=== PATIENT | female | born 1965 | race Caucasian/White ===

== ENCOUNTER 2018-11-11 10:47 | Emergency (ER) | payer BC, OTHER ==
[2018-11-11 13:34] VITALS: BP 134/91
--- NOTE | 2018-11-11 13:42 | UC ---
Respiratory Complaint HPI - HPI Summary HPI Summary: Pt presents with c/o URI like symptoms that pt is concerned is "turning into bronchitis". Pt states that she has had symptoms X 4 days and thinks they are getting better today. Pt has been taking OTC dayquil and nyquil but does report symptoms improve with OTC medications but does not "get rid of the cough ". - History of Current Complaint Chief Complaint: UCRespiratory Stated Complaint: FEVER, COUGH, CONGESTION Time Seen by Provider: 11/11/18 13:27 Hx Obtained From: Patient ?: No Onset/Duration: Sudden Onset, Lasting Days, Still Present Severity Initially: Mild Severity Currently: Mild Pain Intensity: 3 Character: Cough: Nonproductive Aggravating Factors: Exertion, Deep Breaths, Recumbent Position Alleviating Factors: OTC Meds Associated Signs And Symptoms: Positive: URI, Nasal Congestion - Risk Factors Pulmonary Embolism Risk Factors: Smoking Cardiac Risk Factors: Smoking Tuberculosis Risk Factors: Smoking - Allergies/Home Medications Allergies/Adverse Reactions: Allergies Allergy/AdvReac Type Severity Reaction Status Date / Time Penicillins Allergy Hives Verified 11/11/18 13:31 Home Medications: Home Medications Dm/PE/Acetaminophen/Doxylamine [Vicks Nyquil Severe Cold-Flu] 1 liq PO SEE INSTRUCTIONS PRN 11/11/18 [History Confirmed 11/11/18] Omeprazole CAP* [Prilosec CAP* 20 MG] 20 mg PO DAILY 11/11/18 [History Confirmed 11/11/18] PMH/Surg Hx/FS Hx/Imm Hx Previously Healthy: Yes - Surgical History Surgical History: Yes Surgery Procedure, Year, and Place: , Tonsillectomy - Family History Known Family History: Positive: Cardiac Disease - Social History Lives: With Family Alcohol Use: Occasionally Substance Use Type: None Smoking Status (MU): Light Every Day Tobacco Smoker Amount Used/How Often: 1/7 PPD Length of Time of Smoking/Using Tobacco: Since 20s Have You Smoked in the Last Year: Yes Review of Systems All Other Systems Reviewed And Are Negative: Yes Constitutional: Positive: Negative Skin: Positive: Negative Eyes: Positive: Negative ENT: Positive: Negative Respiratory: Positive: Cough Cardiovascular: Positive: Negative Gastrointestinal: Positive: Negative Genitourinary: Positive: Negative Motor: Positive: Negative Neurovascular: Positive: Negative Musculoskeletal: Positive: Negative Neurological: Positive: Negative Psychological: Positive: Negative Is Patient Immunocompromised?: No Physical Exam Triage Information Reviewed: Yes Appearance: Well-Appearing Vital Signs: Initial Vital Signs Temp 98.2 F 11/11/18 13:29 Pulse 90 11/11/18 13:29 Resp 16 11/11/18 13:29 BP 134/91 11/11/18 13:29 Pulse Ox 100 11/11/18 13:29 Vital Signs Reviewed: Yes Eye Exam: Normal ENT Exam: Normal Dental Exam: Normal Neck exam: Normal Respiratory Exam: Normal Cardiovascular Exam: Normal Musculoskeletal Exam: Normal Neurological Exam: Normal Psychological Exam: Normal Skin Exam: Normal UC Diagnostic Evaluation - Laboratory O2 Sat by Pulse Oximetry: 100 Respiratory Course/Dx - Course Course Of Treatment: I discussed with the pt that I believed she had a viral infection. Pt stated that she has bronchitis developing and would like a z-pac. - Differential Dx/Diagnosis Differential Diagnosis/HQI/PQRI: Bronchitis Provider Diagnosis: Bronchitis Discharge - Sign-Out/Discharge Documenting (check all that apply): Patient Departure All imaging exams completed and their final reports reviewed: No Studies - Discharge Plan Condition: Stable Disposition: HOME Prescriptions: Azithromycin TAB* [Zithromax TAB (Z-LIBERTAD) 250 mg #6 tabs] 2 tab PO .TODAY, THEN 1 DAILY #1 libertad Patient Education Materials: Acute Bronchitis (ED) Referrals: [facility] [Outside] - If Needed No Primary Care Phys,NOPCP [Primary Care Provider] - - Billing Disposition and Condition Condition: STABLE Disposition: Home - Attestation Statements Provider Attestation: I was available for consult. This patient was seen by the MARNI. The patient was not presented to, seen by, or examined by me. -Davina
== END 2018-11-11 13:54 | disposition home or self-care (01) ==
LOC: UCCORT 10:47
DX: J40 Bronchitis, not specified as acute or chronic (principal); Z88.0 Allergy status to penicillin; F17.210 Nicotine dependence, cigarettes, uncomplicated
CPT/HCPCS: 99202; G0463